=== PATIENT | female | born 1980 | race Caucasian/White ===

== ENCOUNTER 2016-08-06 20:20 | Emergency (ER) | payer OTHER ==
[~2016-08-06] VITALS: Wt 108.9 kg
[~2016-08-06 20:20] MED LIST: AMOXICILLIN500 M2 PO; BACTRIM DS 8001 TA1 PO; NORCO 10-325 T1 EACH PO; VICODIN ES 7501 TAB PO
[2016-08-06 21:00] LABS: BASO % 0.3 % (0.0-1.0); EOS # 0.2 10*3/uL (0.0-0.4); EOS % 2.4 % (1.0-4.0); HEMATOCRIT 41.4 % (37.0-47.0); HEMOGLOBIN 14.3 g/dl (12.0-16.0); LYMPH # 2.7 10*3/uL (1.3-4.4); LYMPH % 28.8 % (27.0-41.0); MEAN CELL VOLUME 86.1 fl (81.0-99.0); MEAN CORPUSCULAR HGB 29.7 pg (27.0-31.0); MEAN CORPUSCULAR HGB CONC 34.5 g/dl (33.0-37.0); MEAN PLATELET VOLUME 11.3 fl (9.6-12.3); MONO # 0.4 10*3/uL (0.1-1.0); MONO % 3.7 % (3.0-9.0); NEUT # 6.1 10*3/uL (2.3-7.9); NEUT % 64.5 % (47.0-73.0); PLATELET COUNT AUTOMATED 249 10*3/uL (130-400); RED BLOOD COUNT 4.81 10*6/uL (4.10-5.10); WHITE BLOOD COUNT 9.5 10*3/uL (4.8-10.8)
[2016-08-06 21:29] LABS: BILIRUBIN NEGATIVE (NEGATIVE); BLOOD 1+ (NEGATIVE); CLARITY SL CLOUDY (CLEAR); COLOR YELLOW (YELLOW); GLUCOSE 3+ (NEGATIVE); KETONE NEGATIVE (NEGATIVE); LEUKO ESTERASE NEGATIVE (NEGATIVE); NITRITE NEGATIVE (NEGATIVE); PH 5.5 (5.0-9.0); PROTEIN NEGATIVE (NEGATIVE); UROBILINOGEN 0.2 E.U./dl (0.2-1.0)
[2016-08-06 21:35] LABS: BACTERIA 2+; URINE REFLEX COMMENT YES (NO); WBC 0-2 wbc/hpf (0-5)
== END 2016-08-06 21:56 | disposition home or self-care (01) ==
LOC: ED 20:20
PROVIDERS: Physician Assistant
DX: N92.1 Excessive and frequent menstruation with irregular cycle (principal); R03.0 Elevated blood-pressure reading, without diagnosis of hypertension; F17.200 Nicotine dependence, unspecified, uncomplicated

== ENCOUNTER 2016-09-17 20:15 | Emergency (ER) | payer OTHER ==
[~2016-09-17] VITALS: Ht 167.6 cm; Wt 108.9 kg
[2016-09-17] MEDS ORDERED: LISINOPRIL5 MG PO (20:21)
[2016-09-17] MEDS ORDERED: METFORMIN HCL500 MG PO (20:21)
[2016-09-17] MEDS ORDERED: PROVERA2.5 MG PO (20:21)
[2016-09-17] MEDS ORDERED: BACTRIM DS 8001 TA1 PO (21:19)
[2016-09-17] MEDS ORDERED: CEPHALEXIN500 M1 PO (21:19)
== END 2016-09-17 21:24 | disposition home or self-care (01) ==
LOC: ED 20:15
DX: L02.211 Cutaneous abscess of abdominal wall (principal); F17.200 Nicotine dependence, unspecified, uncomplicated

== ENCOUNTER 2016-10-04 03:16 | Emergency (ER) | payer OTHER ==
[~2016-10-04] VITALS: Ht 167.6 cm; Wt 117.9 kg
[~2016-10-04 03:16] MED LIST changes: +CEPHALEXIN500 M1 PO; +LISINOPRIL5 MG PO; +METFORMIN HCL500 MG PO; +PROVERA2.5 MG PO
[2016-10-04] MEDS ORDERED: NORCO 5-325 TA1 EACH PO (03:51)
[2016-10-04] MEDS ORDERED: KEFLEX500 M1 PO (03:51)
== END 2016-10-04 03:36 | disposition home or self-care (01) ==
LOC: ED 03:16
DX: L02.214 Cutaneous abscess of groin (principal); F17.200 Nicotine dependence, unspecified, uncomplicated; Z79.899 Other long term (current) drug therapy